=== PATIENT | male | born 1990 | race Two or more races ===

== ENCOUNTER 2017-10-28 10:25 | Emergency (ER) | payer BC ==
[~2017-10-28] VITALS: Ht 167.6 cm; Wt 72.0 kg
[2017-10-28] MEDS ORDERED: ACETAMINOPHEN 325MG TABLET PO ONE (12:45)
[2017-10-28 13:40] VITALS: BP 128/86
== END 2017-10-28 13:43 | disposition home or self-care (01) ==
LOC: ER 10:25
DX: M72.2 Plantar fascial fibromatosis (principal); Z91.041 Radiographic dye allergy status
CPT/HCPCS: 73620; 99284